=== PATIENT | male | born 1960 | race Two or more races ===

== ENCOUNTER 2020-08-02 15:22 | Emergency (ER) | payer BC, OTHER ==
[~2020-08-02] VITALS: Ht 157.5 cm; Wt 58.0 kg
[2020-08-02] MEDS ORDERED: ASPIRIN 81 MG TABLET CHEW PO ONE (15:30)
[2020-08-02 15:43] LABS: BASOPHILS % (AUTO) 1 % (0-1); EOSINOPHILS % (AUTO) 4 % (1-7); LYMPHOCYTES % (AUTO) 18 % (22-44); MEAN CORPUSCULAR HEMOGLOBIN 31.3 pg (27.5-34.5); MEAN CORPUSCULAR HGB CONC 34.3 g/dL (33.2-36.2); MEAN PLATELET VOLUME 9.1 fL (7.4-10.4); MONOCYTES % (AUTO) 5 % (2-9); NEUTROPHILS % (AUTO) 71 % (42-75); PLATELET COUNT 149 x10^3/uL (130-400); RED BLOOD COUNT 5.06 x10^6/uL (4.38-5.82); RED CELL DISTRIBUTION WIDTH 14.3 % (9.4-14.8)
--- NOTE | 2020-08-02 15:50 | NUR ---
requested records from [facility]
[2020-08-02 15:52] LABS: ALANINE AMINOTRANSFERASE 41 U/L (12-78); ALBUMIN 3.7 g/dL (3.4-5.0); ANION GAP 4 mmol/L (5-15); CALCIUM 9.1 mg/dL (8.5-10.1); CHLORIDE 104 mmol/L (98-107); CREATININE 0.78 mg/dL (0.7-1.3)
[2020-08-02 15:57] LABS: ALKALINE PHOSPHATASE 104 U/L (45-117); BILIRUBIN,TOTAL 0.7 mg/dL (0.2-1.0); TOTAL PROTEIN 8.3 g/dL (6.4-8.2); TROPONIN I < 0.015 ng/mL (0.000-0.045)
--- NOTE | 2020-08-02 15:57 | NUR ---
pt son: Rohan [phone]
[2020-08-02] MEDS ORDERED: POTA20PA25 PO (16:05)
[2020-08-02] MEDS ORDERED: RIVA10TA2 PO (16:05)
[2020-08-02] MEDS ORDERED: FURO-93 PO (16:05)
[2020-08-02 16:16] LABS: MD SCAN
--- NOTE | 2020-08-02 16:30 | NUR ---
AMBULATED ACROSS [facility] TO BATHROOM WITHOUT OXYGEN, NO SOB NOTED. BACK ON MONITOR AND OXYGEN ON RETURN TO ROOM
--- NOTE | 2020-08-02 17:09 | NUR ---
NO CP AT THIS TIME. MD TALKING WITH PT AND EXAMINING PT
[2020-08-02] MEDS ORDERED: LABETALOL 5MG/ML, 20ML IVPush ONE (17:30)
[2020-08-02] MEDS ORDERED: DEXAMETHASONE 4 MG/ML, 1ML PO ONE (17:30)
--- NOTE | 2020-08-02 17:45 | NUR ---
AMBULATED PT AROUND THE ER WITHOUT O2 TO GAUGE RESPONSE. PT O2 SATS 86-88% WHILE WALKING.
[2020-08-02] MEDS ORDERED: DEXAMETHASONE 4 MG/ML, 5ML ONE (17:52)
[2020-08-02] MEDS ORDERED: LABETALOL 20 MG/4 ML ONE (17:53)
[2020-08-02] MEDS ORDERED: ASPIRIN 81 MG TABLET CHEW ONE (17:53)
--- NOTE | 2020-08-02 18:20 | NUR ---
PT'S DAUGHTER CONTACTED ABOUT DC TO BRING O2 FOR PT.
[2020-08-02 18:27] VITALS: BP 173/107
--- NOTE | 2020-08-02 18:55 | NUR ---
DAUGHTER ARRIVED WITH OXYGEN TANK. TO BE DISCHARGED.
== END 2020-08-02 18:57 | disposition home or self-care (01) ==
LOC: ED 16:42
DX: J15.9 Unspecified bacterial pneumonia (principal); R07.89 Other chest pain; R06.02 Shortness of breath; R00.0 Tachycardia, unspecified; Z87.891 Personal history of nicotine dependence
CPT/HCPCS: 36415; 71045; 80053; 83880; 84484; 85025; 93005; 96374; 99285; J1100